=== PATIENT | male | born 1990 | race African-American/Black ===

== ENCOUNTER 2020-01-06 22:06 | Emergency (ER) | payer MEDICAID ==
[~2020-01-06] VITALS: Ht 190.5 cm; Wt 68.0 kg
[2020-01-06] MEDS ORDERED: ACETAMINOPHEN 325MG TABLET PO ONE (23:15)
[2020-01-07] MEDS ORDERED: LIDOCAINE 1%/EPI 1:100,000 10 ML VIAL IJ ONE (00:30)
[2020-01-07] MEDS ORDERED: BACITRACIN ZINC OINT UDPKT TOP ONE (00:30)
[2020-01-07] MEDS ORDERED: TETANUS, DIPHTHERIA, PERTUSSIS VAC/PF 0.5ML (>7YR OLD) IM ONE (00:30)
[2020-01-07 02:07] VITALS: BP 121/69
== END 2020-01-07 02:08 | disposition home or self-care (01) ==
LOC: ER 22:06
DX: S01.01XA Laceration without foreign body of scalp, initial encounter (principal); Y08.89XA Assault by other specified means, initial encounter; Y93.89 Activity, other specified; Y92.89 Other specified places as the place of occurrence of the external cause; Y99.8 Other external cause status; F17.290 Nicotine dependence, other tobacco product, uncomplicated; F12.10 Cannabis abuse, uncomplicated
CPT/HCPCS: 12001; 70450; 73030; 90471; 90715; 93005; 99285; J3490

== ENCOUNTER 2020-01-07 20:13 | Emergency (ER) | payer MEDICAID ==
[~2020-01-07] VITALS: Ht 193 cm; Wt 68.0 kg
[2020-01-07 21:20] VITALS: BP 110/76
== END 2020-01-07 21:20 | disposition home or self-care (01) ==
LOC: ER 20:13
DX: R04.0 Epistaxis (principal); F12.10 Cannabis abuse, uncomplicated
CPT/HCPCS: 99281

== ENCOUNTER 2020-01-10 02:11 | Emergency (ER) | payer MEDICAID ==
[~2020-01-10] VITALS: Ht 180.3 cm; Wt 79.0 kg
[2020-01-10 02:35] VITALS: BP 110/77
== END 2020-01-10 02:36 | disposition home or self-care (01) ==
LOC: ER 02:11
DX: S01.01XD Laceration without foreign body of scalp, subsequent encounter (principal); F17.200 Nicotine dependence, unspecified, uncomplicated; F12.10 Cannabis abuse, uncomplicated; Z48.00 Encounter for change or removal of nonsurgical wound dressing; X58.XXXD Exposure to other specified factors, subsequent encounter
CPT/HCPCS: 99281

== ENCOUNTER 2020-01-10 21:14 | Emergency (ER) | payer MEDICAID ==
[~2020-01-10] VITALS: Ht 190.5 cm; Wt 62.8 kg
[2020-01-10 21:45] VITALS: BP 142/83
== END 2020-01-10 21:47 | disposition home or self-care (01) ==
LOC: ER 21:14
DX: Z48.02 Encounter for removal of sutures (principal); F12.10 Cannabis abuse, uncomplicated
CPT/HCPCS: 99281